=== PATIENT | male | born 1975 | race Caucasian/White ===

== ENCOUNTER 2016-07-31 17:40 | Emergency (ER) | payer OTHER ==
[~2016-07-31 17:40] MED LIST: LORTAB 7.5-5001 TAB PO; MELOXICAM15 MG PO
== END 2016-07-31 19:11 | disposition home or self-care (01) ==
LOC: CFTX 17:40 → CED 17:40 → CFTX 18:33
DX: S81.801A Unspecified open wound, right lower leg, initial encounter (principal); I10 Essential (primary) hypertension; Z23 Encounter for immunization; W22.8XXA Striking against or struck by other objects, initial encounter; Y92.009 Unspecified place in unspecified non-institutional (private) residence as the place of occurrence of the external cause
CPT/HCPCS: 12001; 90471; 90715; 99283